=== PATIENT | female | born 1995 | race Caucasian/White ===

== ENCOUNTER 2018-03-02 11:18 | Emergency (ER) | payer MEDICAID ==
[2018-03-02 11:57] VITALS: BP 118/77
--- NOTE | 2018-03-02 12:21 | UC ---
Complaint Female HPI - HPI Summary HPI Summary: pt c/o pain in her R low abdomen since 3pm yesterday with some nausea. States has had some similar symptoms in past. told pcp but nothing done. - History Of Current Complaint Chief Complaint: UCAbdominalPain Stated Complaint: RIGHT SIDE STOMACH COMPLAINT Time Seen by Provider: 03/02/18 12:12 Hx Obtained From: Patient Hx Last Menstrual Period: Depo-Provera Onset/Duration: Sudden Onset Timing: Constant Pain Intensity: 4 Aggravating Factor(s): Movement Alleviating Factor(s): Nothing Associated Signs And Symptoms: Positive: Nausea. Negative: Fever, Vaginal Bleeding/Discharge - Allergies/Home Medications Allergies/Adverse Reactions: Allergies Allergy/AdvReac Type Severity Reaction Status Date / Time No Known Allergies Allergy Verified 03/02/18 11:50 Home Medications: Home Medications Acetaminophen TAB* [Tylenol TAB*] 975 mg PO Q6H PRN 03/02/18 [History Confirmed 03/02/18] Ibuprofen TAB* [Advil TAB*] 400 mg PO Q6H PRN 03/02/18 [History Confirmed ] medroxyPROGESTERone ACETATE* [DEPO-Provera] 150 mg IM SEE INSTRUCTIONS 03/02/18 [History Confirmed 03/02/18] PMH/Surg Hx/FS Hx/Imm Hx Previously Healthy: Yes - Surgical History Surgical History: None - Family History Known Family History: Positive: None - Social History Occupation: Employed Full-time Alcohol Use: Rare Substance Use Type: None Smoking Status (MU): Never Smoked Tobacco - Immunization History Vaccination Up to Date: Yes Review of Systems Constitutional: Negative Skin: Negative Eyes: Negative ENT: Negative Respiratory: Negative Cardiovascular: Negative Gastrointestinal: Abdominal Pain, Nausea Genitourinary: Negative Motor: Negative Neurovascular: Negative Musculoskeletal: Negative Neurological: Negative Psychological: Negative Is Patient Immunocompromised?: No All Other Systems Reviewed And Are Negative: Yes Physical Exam Triage Information Reviewed: Yes Appearance: Well-Appearing Vital Signs: Initial Vital Signs Temp 98.6 F 03/02/18 11:47 Pulse 78 03/02/18 11:47 Resp 16 03/02/18 11:47 BP 118/77 03/02/18 11:47 Pulse Ox 100 03/02/18 11:47 Vital Signs Reviewed: Yes Eyes: Positive: Conjunctiva Clear ENT: Positive: Pharynx normal, TMs normal. Negative: Nasal congestion, Nasal drainage Neck: Positive: Supple, Nontender, No Lymphadenopathy Respiratory: Positive: Lungs clear, Normal breath sounds Cardiovascular: Positive: RRR, No Murmur Abdomen Description: Positive: Other: - Flat. +BS. soft, Tender in RLQ. no mass or HSM. no guarding or rebound or CVA tendernss. Pelvic exam: declined by pt who opted to have done by ER if indicated. Musculoskeletal: Positive: ROM Intact Neurological: Positive: Alert Psychological: Positive: Age Appropriate Behavior Skin Exam: Normal Diagnostics - Laboratory Diagnostic Studies Completed/Ordered: u/a=unremarkable. hcg=negative. Complaint Female Dx - Course Course Of Treatment: [facility] ER called, report given to PATRICIA Татьяна Arriaga NP. advised of RLQ pain and nausea with neg u/a and HCG here. - Differential Dx/Diagnosis Differential Diagnosis/HQI/PQRI: Appendicitis, Ovarian Cyst, Ovarian Torsion Provider Diagnoses: RLQ pain Discharge - Sign-Out/Discharge Documenting (check all that apply): Patient Departure - Discharge Plan Condition: Stable Disposition: TRANS HIGHER LVL OF CARE FAC Forms: *Work Release Referrals: Symone Downing NP [Primary Care Provider] - Additional Instructions: LEAVE HERE AND GO DIRECTLY TO THE [facility] ER DISCUSSED/ DO NOT EAT OR DRINK. - Billing Disposition and Condition Condition: STABLE Disposition: Trans Higher Lvl of Care Fac
== END 2018-03-02 12:30 | disposition short-term general hospital (02) ==
LOC: UCCORT 11:18
DX: R10.31 Right lower quadrant pain (principal)
CPT/HCPCS: 81003; 84702; 99212; G0463

== ENCOUNTER 2018-07-25 20:20 | Emergency (ER) | payer OTHER ==
[2018-07-25 20:34] VITALS: BP 141/76
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
== END 2018-07-25 20:48 | disposition home or self-care (01) ==
LOC: UCCORT 20:20
DX: H72.91 Unspecified perforation of tympanic membrane, right ear (principal); T70.29XA Other effects of high altitude, initial encounter; Y04.2XXA Assault by strike against or bumped into by another person, initial encounter
CPT/HCPCS: 99211; G0463